=== PATIENT | male | born 1955 | race Caucasian/White ===

== ENCOUNTER 2024-02-25 09:15 | Outpatient (OUT) | payer MEDICARE, OTHER, SELFPAY ==
[2024-02-26 04:08] LABS: PSA, Free 0.52 ng/mL
== END 2024-02-25 09:16 | disposition home or self-care (01) ==
PROVIDERS: PCP Family Medicine; Visit Provider Urology
DX: R97.20 Elevated prostate specific antigen [PSA] (principal)
CPT/HCPCS: 36415; 84153; 84154